=== PATIENT | female | born 1985 | race American Indian/Alaskan Native ===

== ENCOUNTER 2018-11-24 19:06 | Emergency (ER) | payer SELFPAY ==
[2018-11-24 20:01] LABS: Basophils % (Auto) 0.8 % (0.0-1.8); Eosinophils # (Auto) 0.5 K/mm3 (0.0-0.4); Eosinophils % (Auto) 8.1 % (0.0-4.3); Hematocrit 38.6 % (30.3-42.9); Hemoglobin 13.6 gm/dl (10.1-14.3); Lymphocytes # (Auto) 1.9 K/mm3 (1.2-5.4); Mean Corpuscular HGB Conc 35 % (30-34); Mean Corpuscular Volume 91 fl (79-97); Monocytes # (Auto) 0.4 K/mm3 (0.0-0.8); Monocytes % (Auto) 6.4 % (0.0-7.3); Platelet Count 315 K/mm3 (140-440); Red Blood Count 4.24 M/mm3 (3.65-5.03)
[2018-11-24 20:24] LABS: Alanine Aminotransferase 8 units/L (7-56); Albumin 4.2 g/dL (3.9-5); BUN/Creatinine Ratio 17; Blood Urea Nitrogen 10 mg/dL (7-17); Calcium 9.3 mg/dL (8.4-10.2); Hemolysis Index 8
[2018-11-24 21:16] LABS: Bilirubin,Urine NEG (Negative); Blood,Urine NEG (Negative); Color,Urine Yellow (Yellow); Mucus,Urine FEW /HPF; Protein,Urine <15 mg/dL mg/dL (Negative); Urobilinogen,Urine < 2.0 mg/dL (<2.0)
--- NOTE | 2018-11-24 21:41 | Emergency Department Report ---
ED Abdominal Pain HPI - General Chief Complaint: Abdominal Pain Stated Complaint: L THIGH/STOMACH/BACK PAIN Time Seen by Provider: 11/24/18 19:50 Source: patient Mode of arrival: Ambulatory Limitations: No Limitations - History of Present Illness Initial Comments: Patient is A0 33-year-old female with a history of cervical cancer status post hysterectomy who presents to the ED complaining of acute onset persistent diffuse lower abdominal pain for the last 1 week. Patient is also complaints of left medial thigh pain with subjective swelling, worse when she is upright at work or having a physical activity. Patient denies dysuria, urinary frequency and urgency, vaginal bleeding, diarrhea, fever, chills, nausea, vomiting, dizziness, chest pain or shortness of breath, traumatic injury, history lifting or change in vision. MD Complaint: abdominal pain, other (LEFT THIGH PAIN) -: Gradual, week(s) (1) Location: suprapubic Radiation: back Migration to: suprapubic Severity: severe Severity scale (0 -10): 7 Quality: cramping, aching, sharp Consistency: constant Improves With: nothing Worsens With: nothing Associated Symptoms: denies other symptoms. denies: nausea, vomiting, diarrhea, fever, constipation, dysuria, hematemesis, hematochezia, anorexia, syncope - Related Data Previous Rx's Medication Instructions Recorded Last Taken Type Ibuprofen [Motrin] 800 mg PO Q8H PRN #30 tablet 06/26/14 Unknown Rx cephALEXin [Keflex] 500 mg PO BID #14 capsule 06/26/14 Unknown Rx Ibuprofen [Motrin 800 MG tab] 800 mg PO Q8HR PRN #30 tablet 05/19/15 Unknown Rx Sulfamethoxazole/Trimethoprim 1 each PO BID #14 tablet 05/19/15 Unknown Rx [Bactrim DS TAB] Cyclobenzaprine [Flexeril] 10 mg PO Q8H PRN #15 tablet 11/24/18 Unknown Rx DOXYCYCLINE Hyclate [Vibramycin 100 mg PO Q12HR #100 capsule 11/24/18 Unknown Rx CAP] Ketorolac [Toradol] 10 mg PO Q6H PRN #20 tablet 11/24/18 Unknown Rx Ondansetron [Zofran Odt] 4 mg PO Q6HR PRN #15 tab.rapdis 11/24/18 Unknown Rx metroNIDAZOLE [Flagyl] 500 mg PO Q12HR #14 tab 11/24/18 Unknown Rx Allergies Allergy/AdvReac Type Severity Reaction Status Date / Time No Known Allergies Allergy Unverified 06/24/14 17:33 ED Review of Systems ROS: Stated complaint: L THIGH/STOMACH/BACK PAIN Other details as noted in HPI Constitutional: denies: chills, fever Eyes: denies: eye pain, eye discharge, vision change ENT: denies: ear pain, throat pain Respiratory: denies: cough, shortness of breath, wheezing Cardiovascular: denies: chest pain, palpitations Endocrine: no symptoms reported Gastrointestinal: abdominal pain, nausea. denies: diarrhea Genitourinary: denies: urgency, dysuria, discharge Musculoskeletal: arthralgia (LEFT MEDIAL THIGH PAIN). denies: back pain, joint swelling Skin: denies: rash, lesions Neurological: denies: headache, weakness, paresthesias Psychiatric: denies: anxiety, depression Hematological/Lymphatic: denies: easy bleeding, easy bruising ED Past Medical Hx - Past Medical History Previous Medical History?: Yes Hx of Cancer: Yes (Cervix) - Surgical History Past Surgical History?: Yes Additional Surgical History: LEEP 2014, Hysterectomy, - Social History Smoking Status: Current Every Day Smoker Substance Use Type: None - Medications Home Medications: Home Medications Medication Instructions Recorded Confirmed Last Taken Type Ibuprofen [Motrin] 800 mg PO Q8H PRN #30 tablet 06/26/14 Unknown Rx cephALEXin [Keflex] 500 mg PO BID #14 capsule 06/26/14 Unknown Rx Ibuprofen [Motrin 800 MG tab] 800 mg PO Q8HR PRN #30 tablet 05/19/15 Unknown Rx Sulfamethoxazole/Trimethoprim 1 each PO BID #14 tablet 05/19/15 Unknown Rx [Bactrim DS TAB] Cyclobenzaprine [Flexeril] 10 mg PO Q8H PRN #15 tablet 11/24/18 Unknown Rx DOXYCYCLINE Hyclate [Vibramycin 100 mg PO Q12HR #100 capsule 11/24/18 Unknown R x CAP] Ketorolac [Toradol] 10 mg PO Q6H PRN #20 tablet 11/24/18 Unknown Rx Ondansetron [Zofran Odt] 4 mg PO Q6HR PRN #15 tab.rapdis 11/24/18 Unknown Rx metroNIDAZOLE [Flagyl] 500 mg PO Q12HR #14 tab 11/24/18 Unknown Rx ED Physical Exam - General Limitations: No Limitations General appearance: alert, in no apparent distress - Head Head exam: Present: atraumatic, normocephalic, normal inspection - Eye Eye exam: Present: normal appearance, PERRL, EOMI Pupils: Present: normal accommodation - ENT ENT exam: Present: normal exam, normal orophraynx, mucous membranes moist, TM's normal bilaterally, normal external ear exam - Neck Neck exam: Present: normal inspection, full ROM - Respiratory Respiratory exam: Present: normal lung sounds bilaterally. Absent: respiratory distress, wheezes, rales, rhonchi, stridor, chest wall tenderness, decreased breath sounds, prolonged expiratory - Cardiovascular Cardiovascular Exam: Present: regular rate, normal rhythm, normal heart sounds. Absent: systolic murmur, diastolic murmur, rubs, gallop - GI/Abdominal GI/Abdominal exam: Present: soft, tenderness (suprapubic), normal bowel sounds. Absent: rebound, hyperactive bowel sounds, hypoactive bowel sounds, organomegaly, mass - Rectal Rectal exam: Present: deferred - External exam: Present: normal external exam Speculum exam: Present: vaginal discharge, cervical discharge Bi-manual exam: Present: cervical motion tendernes, uterine tenderness - Extremities Exam Extremities exam: Present: normal inspection, full ROM, tenderness (left medial thigh pain), normal capillary refill - Back Exam Back exam: Present: normal inspection. Absent: muscle spasm, paraspinal tenderness, vertebral tenderness - Neurological Exam Neurological exam: Present: alert, oriented X3, CN II-XII intact, normal gait, reflexes normal - Psychiatric Psychiatric exam: Present: normal affect, normal mood - Skin Skin exam: Present: warm, dry, intact, normal color. Absent: rash ED Course Vital Signs 11/24/18 19:14 Temperature 98.2 F Pulse Rate 86 Respiratory 18 Rate Blood Pressure 109/73 O2 Sat by Pulse 100 Oximetry - Reevaluation(s) Reevaluation #1: 11/24/18 23:02 This is a 33-year-old [place] female who presented to the ED with complaint of acute onset severe pelvic pain. Patient is alert and oriented 3 and is not in distress. Labs were drawn including urinalysis, and a non-actionable include a urinalysis. Pelvic exam shows significant cervical motion tenderness. Peak yellowish-green frothy malodorous vaginal discharge. Patient was empirically treated in the ED for acute pelvic inflammatory disease and is sent home on antibiotics and pain medications. The patient left medial thigh pain is most likely musculoskeletal on muscle strain. Patient was advised to follow-up with her primary care physician in 7-10 days for reevaluation or return to the ED immediately if symptoms get worse. ED Medical Decision Making - Lab Data Result diagrams: 11/24/18 19:48 11/24/18 19:48 - Medical Decision Making This is a 33-year-old [place] female who presented to the ED with complaint of acute onset severe pelvic pain. Patient is alert and oriented 3 and is not in distress. Labs were drawn including urinalysis, and a non-actionable include a urinalysis. Pelvic exam shows significant cervical motion tenderness. Peak yellowish-green frothy malodorous vaginal discharge. Patient was empirically treated in the ED for acute pelvic inflammatory disease and is sent home on antibiotics and pain medications. The patient left medial thigh pain is most likely musculoskeletal on muscle strain. Patient was advised to follow-up with her primary care physician in 7-10 days for reevaluation or return to the ED immediately if symptoms get worse. - Differential Diagnosis pelvic inflammatory disease, Acute UTI, Muscle spasm, Critical care attestation.: If time is entered above; I have spent that time in minutes in the direct care of this critically ill patient, excluding procedure time. ED Disposition Clinical Impression: Acute pelvic inflammatory disease (PID), Bacterial vaginosis Muscle strain of left thigh Qualifiers: Encounter type: initial encounter Qualified Code(s): S76.912A - Strain of unspecified muscles, fascia and tendons at thigh level, left thigh, initial encounter Disposition: 07 PAT REG,NO TRIAGE Is pt being admited?: No Does the pt Need Aspirin: No Condition: Stable Instructions: Muscle Strain (ED), Bacterial Vaginosis (ED), Pelvic Inflammatory Disease (ED) Additional Instructions: Take medications with food, drink plenty of fluids and follow-up with your primary care physician or [facility] physician in 7-10 days for reevaluation. Return to the ED immediately if symptoms get worse. Prescriptions: metroNIDAZOLE [Flagyl] 500 mg PO Q12HR #14 tab Cyclobenzaprine [Flexeril] 10 mg PO Q8H PRN #15 tablet PRN Reason: Muscle Spasm Ketorolac [Toradol] 10 mg PO Q6H PRN #20 tablet PRN Reason: Pain DOXYCYCLINE Hyclate [Vibramycin CAP] 100 mg PO Q12HR #100 capsule Ondansetron [Zofran Odt] 4 mg PO Q6HR PRN #15 tab.rapdis PRN Reason: Nausea Referrals: [facility] [Outside] - 3-5 Days Forms: STI Treatment and Prevention Time of Disposition: 22:48 Print Language: ANGUILLAN
[2018-11-24] MEDS ORDERED: ZITHROMAX PO ONE (22:23)
[2018-11-24] MEDS ORDERED: ROCEPHIN IM ONE (22:23)
[2018-11-24] MEDS ORDERED: FLAGYL PO ONE (22:23)
[2018-11-24] MEDS ORDERED: XYLOCAINE 1% MPF 5 mL INFILTRATI ONE (22:23)
[2018-11-24] MEDS ORDERED: ZOFRAN ODT PO ONE (22:24)
[2018-11-24] MEDS ORDERED: TORADOL IM ONE (22:25)
[2018-11-24 23:10] VITALS: BP 108/77
== END 2018-11-24 23:09 | disposition home or self-care (01) ==
LOC: ED 19:06
DX: S76.912A Strain of unspecified muscles, fascia and tendons at thigh level, left thigh, initial encounter (principal); N73.9 Female pelvic inflammatory disease, unspecified; N73.0 Acute parametritis and pelvic cellulitis; N76.0 Acute vaginitis; F17.200 Nicotine dependence, unspecified, uncomplicated; Z85.41 Personal history of malignant neoplasm of cervix uteri; Z98.890 Other specified postprocedural states; Z90.710 Acquired absence of both cervix and uterus; Z79.899 Other long term (current) drug therapy; X58.XXXA Exposure to other specified factors, initial encounter; Y93.89 Activity, other specified; Y92.89 Other specified places as the place of occurrence of the external cause; Y99.8 Other external cause status
CPT/HCPCS: 36415; 80053; 81001; 83690; 85025; 87210; 87591; 96372; 99284; J0696; J1885; Q0162